=== PATIENT | female | born 1970 | race Caucasian/White ===

== ENCOUNTER 2017-03-18 19:02 | Emergency (ER) | payer SELFPAY | END 2017-03-18 20:00 | disposition left against medical advice (07) | LOC: ER1 19:02 | DX: Z53.21 Procedure and treatment not carried out due to patient leaving prior to being seen by health care provider (principal) ==

== ENCOUNTER → 2020-12-04 | Outpatient (CLI) | payer OTHER ==
[~2020-12-04] MED LIST: ADDERALL XR 2020 MG PO; BENTYL 20MG TAB20 MG PO; CLARITIN10 MG PO; DEPAKOTE 250 M250 MG PO; ELAVIL 50 MG TA50 MG PO; FLONASE 0.05% N16 GM; IBUPROFEN600 MG PO; KEFLEX CAP 500500 MG PO; MIRALAX17 GM PO; NAPROSYN500 MG PO; NEURONTIN 300300 MG PO; NEURONTIN600 MG PO; NORCO 7.5-3251 EACH PO; VITAMIN B-121000 MC2 SL; ZOFRAN ODT 4 MG4 MG SL; ZYRTEC10 MG PO
== END ==
LOC: RAD 13:36
DX: M54.2 Cervicalgia (principal); R20.2 Paresthesia of skin; M25.511 Pain in right shoulder; M54.6 Pain in thoracic spine; M47.812 Spondylosis without myelopathy or radiculopathy, cervical region
CPT/HCPCS: 72040; 72072

== ENCOUNTER → 2021-02-11 | Outpatient (CLI) | payer OTHER ==
[2021-02-11 09:56] LABS: HEMOGLOBIN 13.2 gm/dl (12.3-15.3); RED BLOOD COUNT 4.57 M/UL (4.00-5.10); WHITE BLOOD COUNT 7.1 K/UL (4.5-11.0)
[2021-02-11 10:25] LABS: BUN/CREATININE RATIO 18 (0-10)
[2021-02-12 08:14] LABS: THYROXINE (T4) 6.9 ug/dL (4.5-12.0); VITAMIN D, 25-HYDROXY 24.1 ng/mL (30.0-100.0)
== END ==
LOC: LAB 09:20
PROVIDERS: Nurse Practitioner Family
DX: M25.511 Pain in right shoulder (principal); R53.83 Other fatigue; E78.5 Hyperlipidemia, unspecified; E55.9 Vitamin D deficiency, unspecified
CPT/HCPCS: 36415; 80053; 80061; 84436; 84443; 84480; 85025

== ENCOUNTER → 2021-03-11 | Outpatient (CLI) | payer OTHER | LOC: EMI 15:00 | DX: M54.12 Radiculopathy, cervical region (principal); M50.320 Other cervical disc degeneration, mid-cervical region, unspecified level | CPT/HCPCS: 72141 ==

== ENCOUNTER → 2021-05-29 | Outpatient (CLI) | payer OTHER ==
[~2021-05-29] MED LIST changes: +ALPRAZOLAM1 MG PO; +CRESTOR 10 MG T10 MG PO; +PROTONIX40 MG PO; +[UNRECOGNIZED DRUG - OTHER]
== END ==
LOC: KOH-I 10:30
DX: Z01.818 Encounter for other preprocedural examination (principal); M43.22 Fusion of spine, cervical region; M50.323 Other cervical disc degeneration at C6-C7 level; M48.02 Spinal stenosis, cervical region
CPT/HCPCS: 72125

== ENCOUNTER → 2021-06-10 | Outpatient (CLI) | payer OTHER ==
[2021-06-10 12:53] LABS: HEMOGLOBIN 13.5 gm/dl (12.3-15.3); RED BLOOD COUNT 4.66 M/UL (4.00-5.10); WHITE BLOOD COUNT 7.1 K/UL (4.5-11.0)
[2021-06-10 13:17] LABS: BUN/CREATININE RATIO 22 (0-10)
== END ==
LOC: OPSV2 11:30
PROVIDERS: Orthopaedic Surgery
DX: Z01.818 Encounter for other preprocedural examination (principal); G56.01 Carpal tunnel syndrome, right upper limb
CPT/HCPCS: 36415; 80048; 85025

== ENCOUNTER → 2021-06-16 | Day surgery (SDC) | payer OTHER ==
[~2021-06-16] VITALS: Ht 175.3 cm; Wt 75.3 kg
== END | disposition home or self-care (01) ==
LOC: OR 05:54
DX: G56.01 Carpal tunnel syndrome, right upper limb (principal); M48.02 Spinal stenosis, cervical region; M54.12 Radiculopathy, cervical region; G99.2 Myelopathy in diseases classified elsewhere; E78.5 Hyperlipidemia, unspecified; K21.9 Gastro-esophageal reflux disease without esophagitis; F17.290 Nicotine dependence, other tobacco product, uncomplicated; F41.9 Anxiety disorder, unspecified; F32.9 Major depressive disorder, single episode, unspecified; Z79.899 Other long term (current) drug therapy
CPT/HCPCS: J0690; J1170; J2001; J2250; J2704; J3010; J7030; J7120

== ENCOUNTER → 2021-08-28 | Outpatient (CLI) | payer OTHER ==
[~2021-08-28] MED LIST changes: -ALPRAZOLAM1 MG PO; +CYMBALTA 30 MG30 MG PO; +ONDANSETRON ODT4 MG SL; +XANAX1 MG PO
[2021-08-28 11:11] LABS: HEMOGLOBIN 12.7 gm/dl (12.3-15.3); RED BLOOD COUNT 4.4 M/UL (4.00-5.10); WHITE BLOOD COUNT 6.2 K/UL (4.5-11.0)
[2021-08-28 11:36] LABS: BUN/CREATININE RATIO 19 (0-10)
== END ==
LOC: OPSV2 10:00
PROVIDERS: Orthopaedic Surgery
DX: Z01.818 Encounter for other preprocedural examination (principal); M54.12 Radiculopathy, cervical region
CPT/HCPCS: 36415; 71046; 80048; 85027; 87081; 87086; 93005

== ENCOUNTER 2021-09-10 05:26 | Inpatient (IN) | payer OTHER ==
[~2021-09-10] VITALS: Ht 175.3 cm; Wt 73.5 kg
[2021-09-10 13:33] LABS: HEMOGLOBIN 12.5 gm/dl (12.3-15.3); RED BLOOD COUNT 4.34 M/UL (4.00-5.10); WHITE BLOOD COUNT 8.4 K/UL (4.5-11.0)
[2021-09-10 13:52] LABS: BUN/CREATININE RATIO 27 (0-10)
[2021-09-11 05:48] LABS: HEMOGLOBIN 12.3 gm/dl (12.3-15.3); RED BLOOD COUNT 4.43 M/UL (4.00-5.10)
[2021-09-11 05:50] LABS: WHITE BLOOD COUNT 11.3 K/UL (4.5-11.0)
[2021-09-11 05:57] LABS: BUN/CREATININE RATIO 21 (0-10)
== END 2021-09-11 17:46 | disposition home or self-care (01) | DRG 473 ==
LOC: OR 05:26 → EDSTATUS 07:30 → OR 07:30 → CCU 16:12 → OR 16:12 → CCU 16:13
PROVIDERS: ADMIT Orthopaedic Surgery
PROC: 0RG20A0 Fusion of 2 or more Cervical Vertebral Joints with Interbody Fusion Device, Anterior Approach, Anterior Column, Open Approach (ICD-10-PCS; 2021-09-10)
PROC: 4A11X4G Monitoring of Peripheral Nervous Electrical Activity, Intraoperative, External Approach (ICD-10-PCS; 2021-09-10)
PROC: 0RB30ZZ Excision of Cervical Vertebral Disc, Open Approach (ICD-10-PCS; principal; 2021-09-10 07:30)
DX: M48.02 Spinal stenosis, cervical region (principal); E78.5 Hyperlipidemia, unspecified; M47.22 Other spondylosis with radiculopathy, cervical region; R00.1 Bradycardia, unspecified; G62.9 Polyneuropathy, unspecified; Z20.822 Contact with and (suspected) exposure to COVID-19; F41.9 Anxiety disorder, unspecified; K21.9 Gastro-esophageal reflux disease without esophagitis; Z90.49 Acquired absence of other specified parts of digestive tract; Z90.710 Acquired absence of both cervix and uterus; Z98.51 Tubal ligation status; Z98.890 Other specified postprocedural states; Z79.899 Other long term (current) drug therapy; Z83.438 Family history of other disorder of lipoprotein metabolism and other lipidemia; Z83.3 Family history of diabetes mellitus
CPT/HCPCS: 36415; 72040; 72050; 76000; 80048; 82962; 83036; 85027; 86850; 86900; 86901; 97116-GP-CQ; 97161; 97166; C1713; C1762; C1781; J0690; J1040; J1100; J1170; J2001; J2250; J2405; J2704; J3010; J3370; J3475; J7040; J7120